=== PATIENT | female | born 1990 | race African-American/Black ===

== ENCOUNTER 2016-11-29 20:01 | Emergency (ER) | payer OTHER ==
[~2016-11-29] VITALS: Ht 175.3 cm; Wt 73.5 kg
[2016-11-29 20:04] VITALS: BP 142/92
== END 2016-11-29 22:00 | disposition home or self-care (01) ==
LOC: ER 20:05
DX: S60.022A Contusion of left index finger without damage to nail, initial encounter (principal); V49.50XA Passenger injured in collision with unspecified motor vehicles in traffic accident, initial encounter; Y93.89 Activity, other specified; Y92.413 State road as the place of occurrence of the external cause; Y99.8 Other external cause status
CPT/HCPCS: 73140; 99284; A4606; Z7610